=== PATIENT | male | born 1995 | race Caucasian/White ===

== ENCOUNTER 2019-07-27 04:00 | Emergency (ER) | payer OTHER ==
[~2019-07-27] VITALS: Ht 180.3 cm; Wt 95.3 kg
[2019-07-27 04:06] VITALS: BP 140/91
[2019-07-27 05:33] VITALS: BP 138/90
== END 2019-07-27 05:33 | disposition home or self-care (01) ==
LOC: MED 04:00
DX: R00.2 Palpitations (principal); R07.9 Chest pain, unspecified; R20.0 Anesthesia of skin
CPT/HCPCS: 99283

== ENCOUNTER 2020-01-23 01:54 | Emergency (ER) | payer OTHER ==
[~2020-01-23] VITALS: Ht 180.3 cm; Wt 98.4 kg
[2020-01-23 02:01] VITALS: BP 152/102
--- NOTE | 2020-01-23 02:09 | NUR ---
FLU SWAB COLLECTED
--- NOTE | 2020-01-23 02:12 | NUR ---
24 YO MALE CO SORE THROAT AND COUGH FOR 5HRS. NO REDNESS IN THE BACK OF THE THROAT. PT CAN SWALLOW AND NO SIGNS OF DROOLING. LUNG SOUNDS CLEAR THROUGHOUT. PT HAS NO MED HAX AND NOT TAKING ANY RX MEDS.
--- NOTE | 2020-01-23 03:36 | NUR ---
DR. LOCK AT BEDSIDE.
[2020-01-23 03:50] VITALS: BP 152/102
--- NOTE | 2020-01-23 03:51 | NUR ---
Patient discharged with v/s stable. Written and verbal after care instructions given and explained. Patient alert, oriented and verbalized understanding of instructions. Ambulatory with steady gait. All questions addressed prior to discharge. ID band removed. Patient advised to follow up with PMD. Rx of MEDROL given. Patient educated on indication of medication including possible reaction and side effects. Opportunity to ask questions provided and answered.
== END 2020-01-23 03:50 | disposition home or self-care (01) ==
LOC: MED 02:22
DX: J02.8 Acute pharyngitis due to other specified organisms (principal); B97.89 Other viral agents as the cause of diseases classified elsewhere
CPT/HCPCS: 87804; 99283

== ENCOUNTER 2021-11-07 21:03 | Emergency (ER) | payer OTHER ==
[~2021-11-07] VITALS: Ht 182.9 cm; Wt 83.9 kg
[2021-11-07 21:12] VITALS: BP 167/110
--- NOTE | 2021-11-08 01:07 | NUR ---
evangelista by Dr. Zazueta
== END 2021-11-08 01:07 | disposition left against medical advice (07) ==
LOC: MED 21:03
DX: F41.9 Anxiety disorder, unspecified (principal); Z53.21 Procedure and treatment not carried out due to patient leaving prior to being seen by health care provider